=== PATIENT | female | born 2000 | race Caucasian/White ===

== ENCOUNTER 2021-05-17 20:54 | Emergency (ER) | payer SELFPAY ==
[~2021-05-17] VITALS: Ht 160 cm; Wt 83.9 kg
[~2021-05-17 20:54] MED LIST: CEPH500 PO; Percocet 10-321 EACH PO
== END 2021-05-18 00:38 | disposition home or self-care (01) ==
LOC: ER 20:54
DX: R51.9 Headache, unspecified (principal)
CPT/HCPCS: 36415; 81025; 96374; 96375; 99283; A9270; J0780; J1200; J1885; J7030

== ENCOUNTER → 2025-02-23 | Outpatient (CLI) | payer OTHER | LOC: LAB 15:29 → LAB SHORT 15:29 | DX: R07.9 Chest pain, unspecified (principal) ==